=== PATIENT | female | born 1985 | race Caucasian/White ===

== ENCOUNTER 2019-02-06 15:08 | Inpatient (IN) | payer MEDICAID ==
[~2019-02-06] VITALS: Ht 160 cm; Wt 63.5 kg
[2019-02-06 15:11] VITALS: BP_SYST 149
--- NOTE | 2019-02-06 15:19 | NUR ---
Patient to ER bed 8 to gown for evaluation. Side rails up. Report given to Yamileth REAL.
--- NOTE | 2019-02-06 15:22 | NUR ---
PATIENT CAME IN COMPLAINING OF RIGHT FLANK PAIN FOR ABOUT 2 WEEKS. PATIENT ALSO COMPLAINING OF HEADACHE. PATIENT COMPLAINING OF 8/10 PAIN GENERALIZED. PATIENT COMPLAINING OF PAIN AND BURNING WHEN URINATING. PATIENT DENIES SEEING BLOOD IN URINE. PATIENT COMPLAINING OF NAUSEA BUT NO VOMITING. PATIENT DENIES SOB. PATIENT STATES SHES BEEN TAKING ASOS WHICH HELPED FOR LITTLE BUT THEN DIDNT. PATIENT STATES SHE HAS HISTORY OF RECURRENT UTI AND KIDNEY STONES. PATIENT ALERT AND ORIENTED X4.
--- NOTE | 2019-02-06 15:25 | NUR ---
YASMANI LACKEY examining patient.
[2019-02-06] MEDS ORDERED: KETOROLAC TROMETHAMINE 30 MG VIAL IVP ONE (15:30)
[2019-02-06] MEDS ORDERED: ONDANSETRON HCL 4 MG/2 ML VIAL IVP ONE (15:30)
[2019-02-06] MEDS ORDERED: NACL 0.9% 1,000 ML IV ONE (15:30)
--- NOTE | 2019-02-06 15:37 | NUR ---
# 20 gauge angiocath placed to RIGHT AC. Use of asceptic technique. Opsite placed over site. Blood return noted. Blood for lab drawn from site. Flushed with 10 cc of normal saline. No evidence of infiltration noted. Patient tolerated well.
[2019-02-06 15:52] LABS: BASOPHILS % (AUTO) 0.4 % (0.0-2.0); EOSINOPHILS % (AUTO) 0.3 % (0.0-4.0); HEMATOCRIT 41.8 % (36-48); HEMOGLOBIN 14.6 g/dL (12.0-16.0); LYMPHOCYTES # (AUTO) 2.2 K/uL (1.0-5.5); LYMPHOCYTES % (AUTO) 26.4 % (20.5-51.5); MEAN CORPUSCULAR HEMOGLOBIN 31 pg (27-31); MEAN CORPUSCULAR HGB CONC 35 % (32-36); MEAN CORPUSCULAR VOLUME 89 fL (79.0-98.0); MONOCYTES # (AUTO) 0.5 K/uL (0.0-1.0); MONOCYTES % (AUTO) 6.1 % (1.7-9.3); NEUTROPHILS # (AUTO) 5.5 K/uL (1.8-7.7); NEUTROPHILS % (AUTO) 66.8 % (40.0-70.0); PLATELET COUNT (AUTO) 213 K/uL (130-430); RED BLOOD CELL COUNT(AUTO) 4.72 MIL/uL (4.2-6.2); RED CELL DISTRIBUTION WIDTH 13.6 % (9.0-15.0); WHITE BLOOD COUNT (AUTO) 8.3 K/uL (4.8-10.8)
--- NOTE | 2019-02-06 15:55 | NUR ---
PATIENT LEFT TO RADIOLOGY VIA WHEEL CHAIR IN STABLE CONDITION.
[2019-02-06 16:01] LABS: BILIRUBIN,URINE NEGATIVE (NEGATIVE); CLARITY/URINE SL HAZY (CLEAR); COLOR,URINE YELLOW (YELLOW); GLUCOSE,URINE NEGATIVE (NEGATIVE); KETONES,URINE NEGATIVE (NEGATIVE); LEUKOCYTE ESTERASE ,URINE NEGATIVE (NEGATIVE); NITRITE, URINE NEGATIVE (NEGATIVE); PROTEIN URINE NEGATIVE (NEGATIVE); UROBILINOGEN,URINE 0.2 (0.2-1.0)
--- NOTE | 2019-02-06 16:01 | NUR ---
PATIENT BACK FROM RADIOLOGY IN STABLE CONDITION.
[2019-02-06 16:06] LABS: BLOOD, URINE TRACE (NEGATIVE)
[2019-02-06 16:08] LABS: CALCIUM 8.4 mg/dL (8.4-11.0); CREATININE 0.99 mg/dL (0.55-1.30); POTASSIUM 3.2 mmol/L (3.5-5.1)
[2019-02-06 16:13] LABS: BACTERIA,URINE FEW /HPF (None Seen); RBC,URINE 0-3 /HPF (0-3); WBC,URINE 0-3 /HPF (0-3)
[2019-02-06 16:14] LABS: ALBUMIN 3.9 g/dL (3.4-4.8); MUCUS,URINE None Seen /LPF (None Seen); TOTAL BILIRUBIN 0.6 mg/dL (0.0-1.0)
--- NOTE | 2019-02-06 16:30 | NUR ---
WILLIAM LACKEY AT BEDSIDE TALKING TO PATIENT.
--- NOTE | 2019-02-06 16:35 | NUR ---
Medication reconciliation completed with information provided by PATIENT. Any prior medication reconciliation on file was reviewed and corrected.
--- NOTE | 2019-02-06 16:36 | NUR ---
SPOKE TO PATIENT ABOUT END OF LIFE CARE. PATIENT STATES SHE IS FULL CODE.
[2019-02-06] MEDS ORDERED: KCL 20 mEq in D5/0.45NS 1000mL 1,000 ML IV SCH (16:43)
--- NOTE | 2019-02-06 16:44 | NUR ---
Patient will be admitted to care of DR LEVINE. Admitted to MED SURGE unit. Belongings list completed. Summary report printed. Report will be given at bedside.
[2019-02-06] MEDS ORDERED: MORPHINE 2 MG/ML INJ. SYRINGE IVP PRN (16:45)
[2019-02-06] MEDS ORDERED: KCL 40 mEq in 100 mL (PREMIX) 100 ML IV ONE (16:45)
[2019-02-06] MEDS ORDERED: MORPHINE 4 MG/ML INJ. SYRINGE IVP ONE (16:45)
[2019-02-06] MEDS ORDERED: ONDANSETRON HCL 4 MG/2 ML VIAL IVP PRN (16:45)
--- NOTE | 2019-02-06 16:50 | NUR ---
DR LEVINE AT BEDSIDE TALKING TO PATIENT.
[2019-02-06] MEDS ORDERED: POTASSIUM CHLORIDE 40 MEQ, LIDOCAINE JECT 2% PF 100 MG 50 MG in NS 250 ML IV ONE (17:00)
--- NOTE | 2019-02-06 17:26 | NUR ---
REPORT WAS GIVEN TO LORENZA IN MED SURGE.
[2019-02-06] MEDS ORDERED: LEVOFLOXACIN 500 MG/D5W 100 ML IV ONE (17:30)
--- NOTE | 2019-02-06 17:34 | NUR ---
Transfer to [facility]. IV present no sign or symptom of infiltration.
--- NOTE | 2019-02-06 17:37 | NUR ---
Admission:' Received from ER on a gurney with the diagnosis of Right Hydronephrosis. Ambulatory with steady gait. Pain is tolerable, was medicated for pain in ER. Oriented to room, call light within reach.
[2019-02-06 18:07] VITALS: BP_SYST 143
--- NOTE | 2019-02-06 18:32 | NUR ---
END RN NOTES PATIENT CONT WITH IV KRIDER ORDERED NO ADVERSE REACTION NOTED , PATIENT IV TO RT AC INTACT PATIENT HAD MORPHINE IN ER AND TOLERATING, SAFETY ENSURED AND PATIENT FULLY UNDERSTAND PLAN OF CARE WILL CONT TO OBSERVE PATIENT RESPONSE TO CARE
--- NOTE | 2019-02-06 19:24 | NUR ---
Initial Notes Received handoff report from offgoing nurse at the bedside. Patient is awake and alert, resting comfortably in bed. No SOB, no acute distress, no complaints of pain at this time. Currently infusing IV KCL 40 @ 68ml/hr. When the KCL infusion is completed, will start IVPB Levaquin. Bed is locked, in the lowest position, 2x side rails up, bed alarm is on. Call light is within reach. Encouraged patient to call for assistance. Plan of care explained. Will continue with plan of care.
[2019-02-06 20:00] VITALS: BP_SYST 132
--- NOTE | 2019-02-06 20:03 | NUR ---
Patient is complaining of pain 7/10, sharp, to right abdomen. Provided morphine PRN per MD order, see eMAR for details. Will continue to monitor pain management.
--- NOTE | 2019-02-06 20:47 | NUR ---
Patient resting comfortably in bed, AAOx4. No complaints of pain at this time. No SOB, no acute distress. Call light within reach. Encouraged patient to call for assistance.
--- NOTE | 2019-02-06 21:00 | NUR ---
Dr Allred called the unit, and stated to stop the patient's potassium IV. Also changed patient to telemetry. Dr Allred stated that she will input in orders.
[2019-02-06] MEDS ORDERED: D5/0.45 NS 1,000 ML IV SCH (22:00)
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
--- NOTE | 2019-02-06 22:20 | NUR ---
Dr Allred notified regarding patient's AMA. Dr Allred says its okay, and "make sure the patient drinks lots of fluids." Patient made aware, and verbalized understanding to drink plenty of fluids.
--- NOTE | 2019-02-06 22:30 | NUR ---
Patient left the facility. Ambulated out of the hospital independently with steady gait. Hospital ID band and IV site has been removed.
[2019-02-07] MEDS ORDERED: FAMOTIDINE 20 MG TABLET PO SCH (09:00)
== END 2019-02-06 22:30 | disposition left against medical advice (07) | DRG 465 ==
LOC: SED 15:08 → SMU 16:39 → STU 21:24
PROVIDERS: ADMIT Internal Medicine; ATTEND Internal Medicine
DX: N13.2 Hydronephrosis with renal and ureteral calculous obstruction (principal); E86.0 Dehydration; Z53.21 Procedure and treatment not carried out due to patient leaving prior to being seen by health care provider; E87.6 Hypokalemia; I10 Essential (primary) hypertension; Z90.710 Acquired absence of both cervix and uterus; Z98.891 History of uterine scar from previous surgery
CPT/HCPCS: 36415; 80053; 81000-TC; 83690-TC; 83735-TC; 85025; 96361; 96365; 96375; 99285; G0378; J1885; J1956; J2270; J2405; J3480; J7050